=== PATIENT | male | born 1975 | race Caucasian/White ===

== ENCOUNTER 2022-09-17 11:50 | Emergency (ER) | payer BC ==
[~2022-09-17] VITALS: Ht 180.3 cm; Wt 104.0 kg
[2022-09-17] MEDS ORDERED: ALBU18HF2 INH (12:20)
[2022-09-17] MEDS ORDERED: PRED5TAB PO (12:20)
[2022-09-17 12:29] LABS: ALANINE AMINOTRANSFERASE 50 U/L (12-78); ALBUMIN 4.1 G/DL (3.4-5.0); ALBUMIN/GLOBULIN RATIO 1.2 (1.1-1.5); ALKALINE PHOSPHATASE 51 IU/L (46-116); ANION GAP 9 (8-16); ASPARTATE AMINO TRANSFERASE 28 U/L (10-37); BILIRUBIN,TOTAL 0.6 MG/DL (0.1-1.0); BLOOD UREA NITROGEN 15 MG/DL (7-18); BUN/CREATININE RATIO 12.6 (10.0-20.0); CALCIUM 8.8 MG/DL (8.5-10.1); CHLORIDE 104 MMOL/L (99-107); CREATININE 1.19 MG/DL (0.60-1.10); GLUCOSE 107 MG/DL (70-104); SODIUM 139 MMOL/L (135-145); TOTAL CARBON DIOXIDE 26.5 MMOL/L (24-32); TOTAL PROTEIN 7.5 G/DL (6.4-8.2); eGFR 66 ML/MIN
[2022-09-17 12:32] LABS: BASOPHILS % (AUTO) 0.3 % (0-1); EOSINOPHILS # (AUTO) 0.2 X10'3 (0-0.9); EOSINOPHILS % (AUTO) 2.7 % (0-6); HEMATOCRIT 44.8 % (42.0-52.0); HEMOGLOBIN 15.4 g/dl (14.0-17.9); LYMPHOCYTES # (AUTO) 2.7 X10'3 (1.1-4.8); LYMPHOCYTES % (AUTO) 29.5 % (21-51); MEAN CORPUSCULAR HEMOGLOBIN 31.6 PG (27.0-31.0); MEAN CORPUSCULAR HGB CONC 34.2 g/dL (33.0-36.5); MEAN CORPUSCULAR VOLUME 92.3 FL (78-98); MEAN PLATELET VOLUME 6.6 FL (7.4-10.4); MONOCYTES # (AUTO) 0.7 X10'3 (0-0.9); MONOCYTES % (AUTO) 7.2 % (2-12); NEUTROPHILS # (AUTO) 5.4 X10'3 (1.8-7.7); NEUTROPHILS % (AUTO) 60.3 % (42-75); PLATELET COUNT 135 X10'3 (140-440); RED BLOOD COUNT 4.86 X10'6 (4.70-6.10); RED CELL DISTRIBUTION WIDTH 13.9 % (11.5-14.5); WHITE BLOOD COUNT 9.1 X10'3 (4.5-11.0)
[2022-09-17] MEDS ORDERED: normal saline 1000ML IV soln IVB ONE ×2 (12:40→13:15)
[2022-09-17] MEDS ORDERED: metoprolol tartrate 1mg/ml inj IV ONE (12:40)
[2022-09-17] MEDS ORDERED: LORazepam 2 mg/ml vial IV ONE (12:40)
--- NOTE | 2022-09-17 12:59 | NUR ---
rn preparing pt for cardioversion
[2022-09-17] MEDS ORDERED: etomidate 2mg/ml inj. IV ONE (13:05)
--- NOTE | 2022-09-17 13:13 | NUR ---
RN PAGED RT TO COME TO PT BEDSIDE FOR CARDIOVERSION.
--- NOTE | 2022-09-17 13:57 | NUR ---
ETOMIDATE WASTED WITH [employer].
--- NOTE | 2022-09-17 14:16 | NUR ---
PTS BP NOW WNL - HE IS DRINKING PO FLUIDS. ENCOURAGED TO DRINK FLUIDS
[2022-09-17 14:39] VITALS: BP 112/73
== END 2022-09-17 14:40 | disposition home or self-care (01) ==
LOC: ER 11:51
DX: I48.91 Unspecified atrial fibrillation (principal); Z72.89 Other problems related to lifestyle; Z79.899 Other long term (current) drug therapy
CPT/HCPCS: 36415; 71045; 80053; 83880; 84484; 85025; 93005; 96361; 96374; 96375; 99291; J2060; J3490; J7030; 99285; A4620

== ENCOUNTER 2023-07-17 06:32 | Emergency (ER) | payer BC ==
[~2023-07-17] VITALS: Ht 180.3 cm; Wt 113.1 kg
[~2023-07-17 06:32] MED LIST: ALBU18HF2 INH; PRED5TAB PO
[2023-07-17 06:41] VITALS: TEMP 97.4
[2023-07-17 07:52] LABS: BASOPHILS % (AUTO) 0.2 % (0-1); EOSINOPHILS # (AUTO) 0.2 X10'3 (0-0.9); EOSINOPHILS % (AUTO) 2.7 % (0-6); HEMATOCRIT 46.5 % (42.0-52.0); LYMPHOCYTES # (AUTO) 2.5 X10'3 (1.1-4.8); LYMPHOCYTES % (AUTO) 35.4 % (21-51); MEAN CORPUSCULAR HEMOGLOBIN 31.9 PG (27.0-31.0); MEAN CORPUSCULAR HGB CONC 34.5 g/dL (33.0-36.5); MEAN CORPUSCULAR VOLUME 92.6 FL (78-98); MEAN PLATELET VOLUME 6.6 FL (7.4-10.4); MONOCYTES # (AUTO) 0.6 X10'3 (0-0.9); MONOCYTES % (AUTO) 8.8 % (2-12); NEUTROPHILS # (AUTO) 3.7 X10'3 (1.8-7.7); NEUTROPHILS % (AUTO) 52.9 % (42-75); PLATELET COUNT 137 X10'3 (140-440); RED BLOOD COUNT 5.02 X10'6 (4.70-6.10); RED CELL DISTRIBUTION WIDTH 13.8 % (11.5-14.5); WHITE BLOOD COUNT 6.9 X10'3 (4.5-11.0)
[2023-07-17 08:06] LABS: ANION GAP 13 (8-16); BLOOD UREA NITROGEN 18 MG/DL (7-18); BUN/CREATININE RATIO 18.4 (10.0-20.0); CALCIUM 8.7 MG/DL (8.5-10.1); CHLORIDE 106 MMOL/L (99-107); CREATININE 0.98 MG/DL (0.60-1.10); GLUCOSE 108 MG/DL (70-104); POTASSIUM 4.4 MMOL/L (3.5-5.1); PRO BRAIN NATRIURETIC PEPTIDE 1100 PG/ML (0-125); SODIUM 143 MMOL/L (135-145); TOTAL CARBON DIOXIDE 23.7 MMOL/L (24-32); eCRCL 100 ML/MIN; eGFR 82 ML/MIN
[2023-07-17 08:58] VITALS: BP 148/104; PULSE 80; RESP 13; O2SAT 99
[2023-07-17 10:25] LABS: D-DIMER 0.43 MG/L FEU (0-0.50)
== END 2023-07-17 10:42 | disposition home or self-care (01) ==
LOC: ER 06:33
DX: R00.2 Palpitations (principal); Z79.899 Other long term (current) drug therapy
CPT/HCPCS: 36415; 71045; 80048; 83880; 84484; 85025; 85379; 93005; 93306; 99285

== ENCOUNTER 2023-08-15 15:31 | Emergency (ER) | payer BC ==
[~2023-08-15] VITALS: Ht 180.3 cm; Wt 117.5 kg
[2023-08-15 15:38] VITALS: BP 149/106; PULSE 88; TEMP 97.8; O2SAT 98
[2023-08-15 16:54] VITALS: RESP 16
== END 2023-08-15 17:56 | disposition home or self-care (01) ==
LOC: ER 15:31
DX: S62.394A Other fracture of fourth metacarpal bone, right hand, initial encounter for closed fracture (principal); Z72.89 Other problems related to lifestyle; Z98.890 Other specified postprocedural states; Z79.899 Other long term (current) drug therapy; X50.1XXA Overexertion from prolonged static or awkward postures, initial encounter; Y93.89 Activity, other specified; Y92.89 Other specified places as the place of occurrence of the external cause; Y99.8 Other external cause status
CPT/HCPCS: 29125; 73130; 99283